=== PATIENT | male | born 1965 ===

== ENCOUNTER → 2017-04-20 | Outpatient (REF) | LOC: M SMT 13:21 | DX: M54.5 Low back pain (principal) ==

== ENCOUNTER → 2018-09-14 | Outpatient (REF) ==
--- NOTE | 2018-09-14 11:46 | REP ---
Clinical: Pain and disability. Technique: AP, lateral, bilateral oblique and sunrise views of the left knee. Findings: Mild/moderate tricompartmental osteoarthritic degenerative changes include subchondral sclerosis, marginal osteophyte formation, and joint space narrowing. No acute fracture dislocation. No obvious effusion. Lateral view suggests prepatellar swelling. Impression: Mild/early moderate tricompartmental degenerative changes. Electronically Signed by Andre Dean MD 09/14/2018 11:38 A
--- NOTE | 2018-09-14 13:26 | REP ---
Clinical: Pain and disability. Technique: AP, lateral, coned-down views of the lumbosacral spine. Comparison: 04/20/2017. Findings: Alignment and lordosis maintained without acute fracture / compression injury or subluxation. Advanced degenerative changes at L5-S1 include endplate sclerosis, marginal spurring and hypertrophic facet changes with disc space narrowing. Moderate degenerative changes noted throughout the remainder of the visualized thoracolumbar spine including endplate sclerosis with subtle marginal spurring and hypertrophic facet changes. Impression: Focal advanced degenerative changes at L5-S1. Moderate multilevel changes throughout the remainder exam. Electronically Signed by Andre Dean MD 09/14/2018 01:17 P
== END ==
LOC: M SMT 11:08
PROVIDERS: ATTEND Internal Medicine
DX: Z00.00 Encounter for general adult medical examination without abnormal findings (principal)